=== PATIENT | male | born 1995 | race African-American/Black ===

== ENCOUNTER 2019-11-24 14:42 | Emergency (ER) | payer SELFPAY ==
[2019-11-24] MEDS ORDERED: Ketorolac Tromethamine 30 MG/ML VIAL ONE (15:31)
== END 2019-11-24 15:55 | disposition home or self-care (01) ==
LOC: ERS 14:42
DX: K04.7 Periapical abscess without sinus (principal)
CPT/HCPCS: 96372; 99283; J1885